=== PATIENT | female | born 2000 | race American Indian/Alaskan Native ===

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

== ENCOUNTER 2021-11-18 17:58 | Emergency (ER) | payer MEDICAID, OTHER ==
[2021-11-18] MEDS ORDERED: Sodium Chloride 0.9% 10 ML Syringe FLUSH PRN (18:20)
[2021-11-18] MEDS ORDERED: Ondansetron 4 MG/2 ML SDV IVPUSH ONE ×3 (18:20→19:18)
[2021-11-18 18:40] LABS: ANION GAP 19.1 mEq/L (7-13); CHLORIDE,CL 110 mmol/L (98-107); ESTIMATED GFR > 60; SODIUM,NA 148 mmol/L (136-145)
[2021-11-18] MEDS ORDERED: Iopamidol 612 MG/ML 100 ML Bottle IVPUSH ONE (19:50)
[2021-11-18] MEDS ORDERED: Ondansetron 4 MG Tab.DIS PO ONE (20:26)
== END 2021-11-18 20:50 | disposition home or self-care (01) ==
LOC: DL.ED 17:58
DX: S00.81XA Abrasion of other part of head, initial encounter (principal); F10.129 Alcohol abuse with intoxication, unspecified; E03.9 Hypothyroidism, unspecified; Z79.899 Other long term (current) drug therapy; Y90.8 Blood alcohol level of 240 mg/100 ml or more; V49.40XA Driver injured in collision with unspecified motor vehicles in traffic accident, initial encounter; Y92.410 Unspecified street and highway as the place of occurrence of the external cause
CPT/HCPCS: 36415; 70450; 71260; 72125; 74177; 80053; 80307; 84703; 85025; 96374; 99285; A9270; J2405; Q9967; 99283; J3490

== ENCOUNTER 2022-08-29 05:05 | Inpatient (IN) | payer MEDICAID ==
[2022-08-29] MEDS ORDERED: Ondansetron 4 MG/2 ML SDV IVPUSH PRN ×2 (05:42→12:40)
[2022-08-29] MEDS ORDERED: Sodium Chloride 0.9% 10 ML Syringe FLUSH PRN ×2 (05:42→17:47)
[2022-08-29] MEDS ORDERED: Carboprost Tromethamine 250 MCG/1 ML Amp IM PRN (05:42)
[2022-08-29] MEDS ORDERED: Lactated Ringers 1,000 ML IV ONE (05:42)
[2022-08-29] MEDS ORDERED: Lidocaine 1% 10 ML MDV INJECT PRN (05:42)
[2022-08-29] MEDS ORDERED: Misoprostol 400 MCG (4 X 100 MCG TAB) RECTAL PRN (05:42)
[2022-08-29] MEDS ORDERED: Nalbuphine 20 MG/1 ML Amp IM PRN (05:42)
[2022-08-29] MEDS ORDERED: Methylergonovine 0.2 MG/1 ML Amp IM PRN (05:42)
[2022-08-29] MEDS ORDERED: Oxytocin/Normal Saline 30 UNIT/500 ML BAG IV SCH (05:45)
[2022-08-29] MEDS ORDERED: EPINEPHrine 1 MG/ML SDV ONE ×2 (10:14→15:22)
[2022-08-29] MEDS: Lactated Ringers 1,000 ML IV SCH ×2 (10:18→10:38)
[2022-08-29] MEDS ORDERED: Promethazine 25 MG/ML SDV IM PRN (12:40)
[2022-08-29] MEDS ORDERED: ePHEDrine 50 MG/ML SDV IVPUSH PRN (12:40)
[2022-08-29] MEDS ORDERED: Naloxone 2 MG/2 ML Syringe IVPUSH PRN (12:40)
[2022-08-29] MEDS ORDERED: Lactated Ringers 500 ML IV SCH ×2 (12:45)
[2022-08-29] MEDS ORDERED: fentaNYL 100 MCG/2 ML SDV ONE (15:18)
[2022-08-29] MEDS ORDERED: Benzocaine/Menthol 20%-0.5% Spray 78 GM Cannister ONE (17:38)
[2022-08-29] MEDS ORDERED: Simethicone 80 MG Tab.Chew PO PRN (17:47)
[2022-08-29] MEDS ORDERED: Witch Hazel Medicated Pads 100/Jar TOP PRN (17:47)
[2022-08-29] MEDS: Benzocaine/Menthol 20%-0.5% Spray 78 GM Cannister TOP PRN (19:00)
[2022-08-29] MEDS: Docusate Sodium 100 MG Cap PO PRN (20:02)
[2022-08-29] MEDS: Ibuprofen 800 MG Tab PO PRN (20:02)
[2022-08-30] MEDS: Acetaminophen 325 MG Tab PO PRN ×2 (03:27→18:23)
[2022-08-30] MEDS: Prenatal Multivitamin with Calcium/Folic Acid/Iron Tab PO SCH (08:23)
[2022-08-30] MEDS: Ibuprofen 800 MG Tab PO PRN ×2 (08:23→22:00)
[2022-08-30] MEDS: Ferrous Sulfate 325 MG Tab PO SCH (08:23)
[2022-08-30] MEDS: Docusate Sodium 100 MG Cap PO PRN (20:48)
[2022-08-31] MEDS: Acetaminophen 325 MG Tab PO PRN (02:54)
[2022-08-31 08:05] VITALS: BP 118/67; PULSE 66
[2022-08-31] MEDS: Ferrous Sulfate 325 MG Tab PO SCH (09:13)
[2022-08-31] MEDS: Docusate Sodium 100 MG Cap PO PRN (09:13)
[2022-08-31] MEDS: Prenatal Multivitamin with Calcium/Folic Acid/Iron Tab PO SCH (09:13)
[2022-08-31] MEDS ORDERED: Measles, Mumps & Rubella Vaccine 0.5 ML SDV SUBCUT ONE (09:59)
[2022-08-31] MEDS: Benzocaine/Menthol 20%-0.5% Spray 78 GM Cannister TOP PRN (11:59)
[2022-08-31] MEDS: Ibuprofen 800 MG Tab PO PRN (12:00)
== END 2022-08-31 12:02 | disposition home or self-care (01) | DRG 806 ==
LOC: DL.OBCHECK 05:05 → DL.OB 05:40 → OBSVTOIN 17:13 → DL.OB 17:13
PROVIDERS: ADMIT Family Medicine; ATTEND Family Medicine
PROC: 10E0XZZ Delivery of Products of Conception, External Approach (ICD-10-PCS; principal; 2022-08-29)
PROC: 0KQM0ZZ Repair Perineum Muscle, Open Approach (ICD-10-PCS; 2022-08-29)
PROC: 10907ZC Drainage of Amniotic Fluid, Therapeutic from Products of Conception, Via Natural or Artificial Opening (ICD-10-PCS; 2022-08-29)
PROC: 00HU33Z Insertion of Infusion Device into Spinal Canal, Percutaneous Approach (ICD-10-PCS; 2022-08-29)
PROC: 3E0R3BZ Introduction of Anesthetic Agent into Spinal Canal, Percutaneous Approach (ICD-10-PCS; 2022-08-29)
PROC: 3E0234Z Introduction of Serum, Toxoid and Vaccine into Muscle, Percutaneous Approach (ICD-10-PCS; 2022-08-31)
DX: O99.02 Anemia complicating childbirth (principal); O99.324 Drug use complicating childbirth; Z37.0 Single live birth; D64.9 Anemia, unspecified; O70.1 Second degree perineal laceration during delivery; Z3A.39 39 weeks gestation of pregnancy; Z20.822 Contact with and (suspected) exposure to COVID-19; Z88.2 Allergy status to sulfonamides; O99.344 Other mental disorders complicating childbirth; F32.A Depression, unspecified; Z23 Encounter for immunization; F12.90 Cannabis use, unspecified, uncomplicated
CPT/HCPCS: 01967; 36415; 59409; 85027; 90471; 90707; A9270-GY; J2300; J2405; J2550; J2590; J7120; U0002

== ENCOUNTER 2024-04-07 23:32 | Inpatient (IN) | payer BC ==
[2024-04-08] MEDS: Lactated Ringers 1,000 ML IV SCH (00:05)
[2024-04-08] MEDS ORDERED: fentaNYL 100 MCG/2 ML SDV ONE (00:22)
[2024-04-08] MEDS ORDERED: Bupivacaine 0.25% 10 ML SDV ONE (00:22)
[2024-04-08 00:30] LABS: HEMATOCRIT 36.3 % (37.0-47.0); HEMOGLOBIN 11.2 g/dL (12.0-16.0); MEAN CORPUSCULAR HEMOGLOBIN 23.1 pg (27.0-34.0); MEAN CORPUSCULAR HGB CONC 30.9 g/dL (33.0-35.0); MEAN CORPUSCULAR VOLUME 74.8 fL (80-100); RED BLOOD CELL COUNT 4.85 10^6/uL (4.2-5.4); WHITE BLOOD CELL COUNT,WBC 8.3 10^3/uL (5.0-10.0)
[2024-04-08] MEDS ORDERED: Phenylephrine HCl In 0.9% NaCl 1 MG/10 ML Syringe IVPUSH PRN (00:52)
[2024-04-08] MEDS ORDERED: Tranexamic Acid 1,000 MG in Sodium Chloride 0.9% 100 ML IV PRN ×2 (00:52→21:24)
[2024-04-08] MEDS ORDERED: Methylergonovine 0.2 MG/1 ML Amp IM PRN (00:52)
[2024-04-08] MEDS ORDERED: Acetaminophen 325 MG Tab PO PRN (00:52)
[2024-04-08] MEDS ORDERED: Misoprostol 400 MCG (4 X 100 MCG TAB) RECTAL PRN ×2 (00:52→21:24)
[2024-04-08] MEDS ORDERED: Carboprost Tromethamine 250 MCG/1 ML Amp IM PRN ×2 (00:52→21:24)
[2024-04-08] MEDS ORDERED: ePHEDrine 50 MG/ML SDV IVPUSH PRN (00:52)
[2024-04-08] MEDS ORDERED: Sodium Chloride 0.9% 10 ML Syringe FLUSH PRN ×2 (00:52→21:24)
[2024-04-08] MEDS ORDERED: Ropivacaine 200 MG in Premix Bag 1 BAG EPIDUR SCH (01:00)
[2024-04-08] MEDS: Ondansetron 4 MG/2 ML SDV IVPUSH PRN (02:07)
[2024-04-08] MEDS: Lactated Ringers 1,000 ML IV ONE (02:19)
[2024-04-08] MEDS: Oxytocin/Normal Saline 30 UNIT/500 ML BAG IV SCH (03:56)
[2024-04-08] MEDS ORDERED: Ibuprofen 600 MG Tab PO SCH (05:15)
[2024-04-08] MEDS: Benzocaine/Menthol 20%-0.5% Spray 78 GM Cannister TOP PRN (06:02)
[2024-04-08] MEDS: Witch Hazel Medicated Pads 100/Jar TOP PRN (06:04)
[2024-04-08] MEDS: Ibuprofen 800 MG Tab PO SCH (07:07)
[2024-04-08] MEDS: Lidocaine 1% 30 ML SDV INJECT ONE (07:10)
[2024-04-08] MEDS ORDERED: Lidocaine 1% 6 ML ONE (07:40)
[2024-04-08] MEDS: Prenatal Multivitamin with Calcium/Folic Acid/Iron Tab PO SCH (09:14)
[2024-04-08] MEDS: Docusate Sodium 100 MG Cap PO PRN (09:14)
[2024-04-08] MEDS ORDERED: Docusate Sodium 100 MG Cap PO PRN (21:24)
[2024-04-08] MEDS ORDERED: Simethicone 80 MG Tab.Chew PO PRN (21:24)
[2024-04-08] MEDS ORDERED: Benzocaine/Menthol 20%-0.5% Spray 78 GM Cannister TOP PRN (21:24)
[2024-04-08] MEDS ORDERED: Oxytocin 10 Units/1 ML SDV IM PRN (21:24)
[2024-04-09] MEDS: Prenatal Multivitamin with Calcium/Folic Acid/Iron Tab PO SCH (01:17)
[2024-04-09] MEDS: Ibuprofen 800 MG Tab PO SCH (01:17)
[2024-04-09] MEDS: Acetaminophen 325 MG Tab PO PRN (04:44)
[2024-04-09 05:04] LABS: HEMATOCRIT 34.7 % (37.0-47.0); HEMOGLOBIN 10.7 g/dL (12.0-16.0)
[2024-04-09 07:35] VITALS: BP 118/68; PULSE 61
[2024-04-09] MEDS: Measles, Mumps & Rubella Vaccine 0.5 ML SDV SUBCUT ONE (08:32)
== END 2024-04-09 10:50 | disposition home or self-care (01) | DRG 560 ==
LOC: DL.OBCHECK 23:32 → DL.OB 04-08 00:52 → OBSVTOIN 04-08 03:48
PROVIDERS: ADMIT Student in an Organized Health Care Education/Training Program; ATTEND Student in an Organized Health Care Education/Training Program
PROC: 10E0XZZ Delivery of Products of Conception, External Approach (ICD-10-PCS; principal; 2024-04-08)
PROC: 0HQ9XZZ Repair Perineum Skin, External Approach (ICD-10-PCS; 2024-04-08)
PROC: 3E0R3BZ Introduction of Anesthetic Agent into Spinal Canal, Percutaneous Approach (ICD-10-PCS; 2024-04-08)
PROC: 00HU33Z Insertion of Infusion Device into Spinal Canal, Percutaneous Approach (ICD-10-PCS; 2024-04-08)
DX: O99.02 Anemia complicating childbirth (principal); O69.81X0 Labor and delivery complicated by cord around neck, without compression, not applicable or unspecified; Z37.0 Single live birth; O66.0 Obstructed labor due to shoulder dystocia; O70.0 First degree perineal laceration during delivery; Z3A.39 39 weeks gestation of pregnancy
CPT/HCPCS: 36415; 51701; 59409; 85014; 85018; 85027; 90471; 90707; A9270-GY; C1729; J2405; J2590; J7120

== ENCOUNTER 2025-07-09 10:02 | Emergency (ER) | payer BC, MEDICAID ==
[2025-07-09] MEDS: Iopamidol 755 Mg/ML 100 ML Bottle IVPUSH ONE (10:12)
[2025-07-09 10:40] LABS: BASOPHILS PERCENT AUTO 0.2 % (0.0-1.0); EOSINOPHILS PERCENT AUTO 0.0 % (1.0-3.0); LYMPHOCYTES PERCENT AUTO 7.8 % (20.5-50.1); MONOCYTES PERCENT AUTO 3.5 % (2-8); NEUTROPHILS PERCENT AUTO 88.5 % (42.2-75.2); PLATELET COUNT,PLT 244 10^3/uL (150-450); RED BLOOD CELL COUNT 5.08 10^6/uL (4.2-5.4); WHITE BLOOD CELL COUNT,WBC 18.0 10^3/uL (5.0-10.0)
[2025-07-09 11:00] LABS: A/G RATIO 1.2; ALANINE AMINOTRANSFERASE,ALT 58 U/L (14-59); ASPARTATE AMNIOTRANSFERASE,AST 29 U/L (15-37); BILIRUBIN TOTAL 0.4 mg/dL (0.2-1.0); BLOOD UREA NITROGEN,BUN 8 mg/dL (7-18); CARBON DIOXIDE,CO2 24 mmol/L (21-32); CHLORIDE,CL 111 mmol/L (98-107); CREATININE 0.59 mg/dL (0.55-1.02); EST CRCL DRUG DOSING (CG) 132.30 mL/min; ESTIMATED GFR 129 mL/min (>=60); GLUCOSE RANDOM 110 mg/dL (70-99); HCG QUALITATIVE,SERUM NEGATIVE (NEGATIVE); POTASSIUM,K 3.8 mmol/L (3.5-5.1); PROTEIN TOTAL,TP 8.2 g/dL (6.4-8.2); SODIUM,NA 151 mmol/L (136-145)
[2025-07-09] MEDS: Ondansetron 4 MG/2 ML SDV IVPUSH ONE (12:31)
[2025-07-09] MEDS: Ondansetron 4 MG/2 ML SDV ONE (12:33)
[2025-07-09 13:20] VITALS: BP 93/56; PULSE 99
[2025-07-09] MEDS ORDERED: Take Home: Ondansetron 4 MG Tab.DIS, 5 Tab Pack PO ONE (14:04)
== END 2025-07-09 14:17 | disposition home or self-care (01) ==
LOC: DL.ED 10:02
DX: S10.93XA Contusion of unspecified part of neck, initial encounter (principal); M25.561 Pain in right knee; Z88.2 Allergy status to sulfonamides; Z79.899 Other long term (current) drug therapy; W49.09XA Other specified item causing external constriction, initial encounter
CPT/HCPCS: 36415; 70498; 80053; 84703; 85025; 96374; 99285; J2405; Q9967; 99283